=== PATIENT | female | born 1960 | race Caucasian/White ===

== ENCOUNTER 2018-10-25 01:14 | Emergency (ER) | payer BC, OTHER ==
[2018-10-25 01:35] VITALS: BP 120/83
--- NOTE | 2018-10-25 01:53 | ED Physician Documentation ---
General Adult - HISTORIAN Historian: patient - HPI Stated Complaint: COUGH, FEVER FOR 3 DAYS Chief Complaint: General Adult Onset: days ago Timing: still present Severity: moderate Further Comments: yes (Pt6 is a 58 yo female with a cough and fever x 3 days. Pt has been taking motrin for fever. No n/v.) - ROS CONST: chills, other (malaise) EYES/ENT: none CVS/RESP: cough GI/: none MS/SKIN/LYMPH: none - PAST HX Past History: none Allergies/Adverse Reactions: Allergies Allergy/AdvReac Type Severity Reaction Status Date / Time No Known Allergies Allergy Verified 10/25/18 01:35 Home Medications: Ambulatory Orders Medication Instructions Recorded Oseltamivir Phosphate [Tamiflu] 75 mg PO Q12H #10 capsule 10/25/18 - SOCIAL HX Smoking History: non-smoker - FAMILY HX Family History: No - VITAL SIGNS Vital Signs: Vital Signs Temp Pulse Resp BP Pulse Ox 100.5 F H 112 H 18 120/83 96 10/25/18 01:15 10/25/18 01:15 10/25/18 01:15 10/25/18 01:15 10/25/18 01:15 - REVIEWED ASSESSMENTS Nursing Assessment Reviewed: Yes Vitals Reviewed: Yes Progress - Progress Progress: Influenza A - pos rx Tamiflu 75 mg po bid x 5 days. nasal washes Tylenol/Motrin Drink fluids. General Adult Physical Exam - PHYSICAL EXAM GENERAL APPEARANCE: mild distress EENT: pharynx normal NECK: normal inspection, supple RESPIRATORY: no resp distress, chest non-tender, breath sounds normal, other (cough) CVS: reg rate & rhythm, heart sounds normal ABDOMEN: soft, no organomegaly, normal bowel sounds BACK: normal inspection, no CVA tenderness SKIN: warm/dry, normal color EXTREMITIES: non-tender, normal range of motion, no evidence of injury NEURO: oriented X3, motor nml, sensation nml Discharge Clincal Impression: Influenza A Prescriptions: Oseltamivir Phosphate [Tamiflu] 75 mg PO Q12H #10 capsule Referrals: Primary Doctor,No [Primary Care Provider] - Condition: Stable Disposition: 01 HOME, SELF-CARE Decision to Admit: NO Decision Time: 02:00
== END 2018-10-25 02:03 | disposition home or self-care (01) ==
LOC: ED 01:14
DX: J09.X2 Influenza due to identified novel influenza A virus with other respiratory manifestations (principal)
CPT/HCPCS: 87400; 99282; 99283